=== PATIENT | female | born 1995 | race African-American/Black ===

== ENCOUNTER 2018-08-20 15:29 | Emergency (ER) | payer SELFPAY ==
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
[2018-08-20] MEDS ORDERED: IOPAMIDOL 76% 75 ML INFUS BTL 75 ML ONE (16:06)
[2018-08-20] MEDS ORDERED: NS(*) 0.9% 50 ML BAG 50 ML ONE (16:06)
[2018-08-20] MEDS ORDERED: KETOROLAC 30 MG/ML VIAL IVP ONE (17:15)
--- NOTE | 2018-08-20 17:24 | RADIOLOGY IMAGING REPORT ---
[place] [facility] [place] Vannesa Hinson : 1995 MR: [id number] V: [id number] EXAM DATE: ORDERING PHYSICIAN: ZAMZAM LO TECHNOLOGIST: Location: [facility] Patient: Vannesa Hinson : 1995 Visit/Account:[id number] Date of Sevice: 08/20/2018 EXAMINATION: Head CT without intravenous contrast HISTORY: Trauma. COMPARISON: None. TECHNIQUE: Contiguous axial images were obtained from the skull base to the vertex without intraven ous contrast. Sagittal and coronal reformatted images are also submitted. One of the following dose optimization techniques was utilized in the performance of this exam: Autom ated exposure control; adjustment of the mA and/or kV according to the patient's size; or use of an i terative reconstruction technique. Specific details can be referenced in the facility's radiology C T exam operational policy. FINDINGS: Brain and intracranial structures: Ventricles and sulci are normal in size. Cavum velum interpositu m. No midline shift, acute hemorrhage, acute infarct, or mass. Calvarium / scalp: Mild focal soft tissue swelling of the forehead on the left. No acute fracture o f the calvarium. Skull base / visualized face: Anterior nasal bone fracture which is age-indeterminate. Mild leftwar d deviation of the nasal septum. Visualized sinuses / orbits: Trace mucosal thickening in the paranasal sinuses. IMPRESSION: Mild focal soft tissue swelling at the forehead on the left. Age-indeterminate nasal bone fracture with slight angulation. No acute intracranial abnormality. Report Dictated By: Hubert Bojorquez MD at 08/20/2018 5:10 PM Report E-Signed By: Hubert Bojorquez MD at 08/20/2018 5:21 PM WSN:[email or web address]
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
[2018-08-20 18:10] VITALS: BP 110/88
== END 2018-08-20 18:15 | disposition home or self-care (01) ==
LOC: ER 15:43
DX: S02.2XXA Fracture of nasal bones, initial encounter for closed fracture (principal); S00.81XA Abrasion of other part of head, initial encounter; Y04.2XXA Assault by strike against or bumped into by another person, initial encounter
CPT/HCPCS: 70450; 70498; 84703; 96374; 99284; J1885; J7050; Q9967

== ENCOUNTER 2018-09-23 22:31 | Inpatient (IN) | payer OTHER ==
[~2018-09-23] VITALS: Ht 160 cm; Wt 50.8 kg
[2018-09-23] MEDS ORDERED: DIAZEPAM 10 MG TAB PO PRN ×2 (23:40)
[2018-09-24 00:45] VITALS: BP 106/83
[2018-09-24] MEDS ORDERED: MAG HYD/AL HYD/SIMETH 30ML UDC PO PRN (02:40)
[2018-09-24 05:08] VITALS: BP 120/81
[2018-09-24 08:00] VITALS: BP 120/78
[2018-09-24] MEDS: THIAMINE HCL 100 MG TAB PO SCH (08:25)
[2018-09-24] MEDS: FOLIC ACID 1 MG TAB PO SCH (08:25)
[2018-09-24] MEDS: MULTIVITAMINS TAB PO SCH (08:25)
[2018-09-24 12:00] VITALS: BP 122/88
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
[2018-09-24 16:10] VITALS: BP 122/86
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
[2018-09-25 06:02] VITALS: BP 130/103
[2018-09-25 08:18] VITALS: BP 132/91
[2018-09-25] MEDS: FOLIC ACID 1 MG TAB PO SCH (08:19)
[2018-09-25] MEDS: THIAMINE HCL 100 MG TAB PO SCH (08:19)
[2018-09-25] MEDS: MULTIVITAMINS TAB PO SCH (08:19)
[2018-09-25] MEDS ORDERED: NICOTINE INH SYSTEM 10 MG/INH INH PRN (12:20)
[2018-09-25] MEDS ORDERED: NICOTINE CARTRIDGE 1 EA PO PRN (12:20)
--- NOTE | 2018-09-25 12:34 | BHS Progress Note ---
[facility] - Subjective Progress Notes Subjective "We are supposed to be leaving for [place] on Thursday." Has been drinking 1 pint vodka daily x last two weeks Two weeks ago last methamphetamine, smoking last 4 years Denies depression or thoughts of hurting self Anxiety "Yes, I want to go home" Denies anger or mood swings, reports sleep as sufficient Denies withdrawal symptoms, denies NVD, tremor resolved Second psychiatric admission (first in [place] 2012), initially voluntary then was detained as had a near suicide attempt prior to ER presentation Previously prescribed Abilify and Seroquel, previous therapy at [facility] in [place] Suicidal Ideation: None Homicidal Ideation: None S - Objective Physical Exam Vital Signs Hematology Test 09/24/18 10:42 Chemistry Test 09/24/18 10:42 Medications (Trade) Dose Ordered Sig/Beth Route PRN Reason Start Time Stop Time Status Last Admin Dose Admin Folic Acid (Folic Acid (*) 1 Mg Tab) 1 mg QDAY PO 09/24/18 09:00 10/24/18 08:59 09/25/18 08:19 Multivitamins (Thera-M Enhanced Tab (Or Equiv)) 1 each QDAY PO 09/24/18 09:00 10/24/18 08:59 09/25/18 08:19 Thiamine HCl (Vitamin B-1(*) 100 Mg Tab (Or Equiv)) 100 mg QDAY PO 09/24/18 09:00 10/24/18 08:59 09/25/18 08:19 Muscle Strength and Tone: WNL Gait and Station: Steady [facility] Medications Reviewed: Side Effects, Benefits of Medication, Risks Allergies Reviewed: Yes Mental Status Exam General Appearance: Casual, Good Eye Contact (fair eye contact), Cooperative Speech: Clear, Spontaneous, Normal Rate, Normal Rhythm, Normal Volume, Normal Tone Mood: Dysthmic/Depressed (denies depression, slightly irritable); No Euthymic, No Hyperthymic Affect: No Full and Appropriate, No Calm, No Sad; Neutral; No Flat; Withdrawn; No Tearful, No Anxious; Agitated (Indicates to this interviewer that she is trying to sleep and does not want to speak to this interviewer.) Thought Process: Organized, Logical, Goal Directed; No Loose Associations, No Flight of Ideas Thought Content: No Suicidal Ideation (Denies at this time.), No Homicidal Ideation, No Delusions, No Auditory Halllucinations, No Visual Hallucinations, No Thought Broadcasting, No Ideas of Reference, No Obsessions Cognition: Alert & Oriented-Person, Alert & Oriented-Place, Alert & Oriented- Time Memory: Immediate, Recent, Remote Intelligence: Average Insight Judgment: Poor Microbiology Medications (Trade) Dose Ordered Sig/Beth Route PRN Reason Start Time Stop Time Status Last Admin Dose Admin Folic Acid (Folic Acid (*) 1 Mg Tab) 1 mg QDAY PO 09/24/18 09:00 10/24/18 08:59 09/25/18 08:19 Multivitamins (Thera-M Enhanced Tab (Or Equiv)) 1 each QDAY PO 09/24/18 09:00 10/24/18 08:59 09/25/18 08:19 Thiamine HCl (Vitamin B-1(*) 100 Mg Tab (Or Equiv)) 100 mg QDAY PO 09/24/18 09:00 10/24/18 08:59 09/25/18 08:19 [facility] Assessment and Plan [id number] Encounter Date: Sep 25, 2018 [id number] Encounter Time: 12:28 Problems: (1) Stimulant use disorder Status: Chronic (2) Alcohol use disorder Status: Chronic (3) Opioid use Status: Chronic Condition Discontinue CIWA Ongoing discharge planning, potential dc on Thursday Maintain precautions DANIELA ASHRAF NP Sep 25, 2018 12:34
[2018-09-26 06:11] VITALS: BP 127/98
[2018-09-26] MEDS: MULTIVITAMINS TAB PO SCH (08:47)
[2018-09-26] MEDS: FOLIC ACID 1 MG TAB PO SCH (08:47)
[2018-09-26] MEDS: THIAMINE HCL 100 MG TAB PO SCH (08:47)
--- NOTE | 2018-09-26 09:29 | BHS Progress Note ---
[facility] - Subjective Progress Notes Subjective "I'm doing well. I've learned that drinking is everything I've been drinking every day for a month." Denies urge to drink or use illicit substances Plans for traveling to [place] on Thursday, potential discharge Thursday Last use of heroin 3 months ago, last use of methamphetamine 3 weeks ago Living in [facility] presently with mother Suicidal Ideation: None Homicidal Ideation: None [facility] - Objective Physical Exam Vital Signs Laboratory Tests 09/24/18 10:42: Medications (Trade) Dose Ordered Sig/Beth Route PRN Reason Start Time Stop Time Status Last Admin Dose Admin Folic Acid (Folic Acid (*) 1 Mg Tab) 1 mg QDAY PO 09/24/18 09:00 10/24/18 08:59 09/26/18 08:47 Miscellaneous Information (Nicotrol Cartridge) 1 each PRN PRN PO NICOTINE REPLACEMENT 09/25/18 12:20 10/25/18 12:19 09/25/18 14:40 Multivitamins (Thera-M Enhanced Tab (Or Equiv)) 1 each QDAY PO 09/24/18 09:00 10/24/18 08:59 09/26/18 08:47 Nicotine (Nicotrol Inhaler 10 Mg/Inh (Or Equiv)) 10 mg PRN PRN INH NICOTINE REPLACEMENT 09/25/18 12:20 10/25/18 12:19 09/25/18 14:40 Thiamine HCl (Vitamin B-1(*) 100 Mg Tab (Or Equiv)) 100 mg QDAY PO 09/24/18 09:00 10/24/18 08:59 09/26/18 08:47 Laboratory Tests 09/24/18 10:42: Vital Signs Date Time Temp Pulse Resp B/P (MAP) Pulse Ox O2 Delivery O2 Flow Rate FiO2 09/26/18 06:11 97.6 75 127/98 (108) 95 Room Air 09/25/18 08:18 16 Allergies Coded Allergies No Known Drug Allergies ([id number]) Muscle Strength and Tone: WNL Gait and Station: Steady [facility] Medications Reviewed: Side Effects, Benefits of Medication, Risks Allergies Reviewed: Yes Mental Status Exam General Appearance: Casual, Good Eye Contact (fair eye contact), Cooperative Speech: Clear, Spontaneous, Normal Rate, Normal Rhythm, Normal Volume, Normal Tone Mood: No Dysthmic/Depressed; Euthymic; No Hyperthymic Affect: No Full and Appropriate, No Calm, No Sad; Neutral; No Flat; Withdrawn; No Tearful, No Anxious; Agitated (Indicates to this interviewer that she is trying to sleep and does not want to speak to this interviewer.) Thought Process: Organized, Logical, Goal Directed; No Loose Associations, No Flight of Ideas Thought Content: No Suicidal Ideation (Denies at this time.), No Homicidal Ideation, No Delusions, No Auditory Halllucinations, No Visual Hallucinations, No Thought Broadcasting, No Ideas of Reference, No Obsessions Cognition: Alert & Oriented-Person, Alert & Oriented-Place, Alert & Oriented- Time Memory: Immediate, Recent, Remote Intelligence: Average Insight Judgment: Poor Lab Vital Signs Date Time Temp Pulse Resp B/P (MAP) Pulse Ox O2 Delivery O2 Flow Rate FiO2 09/26/18 06:11 97.6 75 127/98 (108) 95 Room Air 09/25/18 08:18 16 [facility] Assessment and Plan [id number] Encounter Date: Sep 26, 2018 [id number] Encounter Time: 09:18 [facility] Plan: Admit to Unit, Necessary Precautions, Individual/Group Therapy, Educate Patient Multpiple Antipsychotics Used: No Problems: (1) Stimulant use disorder Status: Chronic (2) Alcohol use disorder Status: Chronic (3) Opioid use Status: Chronic Condition Discharge to home Encourage follow up with outpatient individual substance abuse therapy, resources provided prior to discharge Crisis line # provided, encourage use for worsening s/s, SI/H Return to ER for worsening s/s SI/HI DANIELA ASHRAF NP Sep 26, 2018 09:29
[2018-09-26] MEDS ORDERED: NIC10R INH (09:33)
[2018-09-26 10:14] VITALS: BP 117/83
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
== END 2018-09-26 11:40 | disposition home or self-care (01) | DRG 897 ==
LOC: BHS 22:31
PROVIDERS: ADMIT Psychiatry & Neurology Psychiatry; ATTEND Psychiatry & Neurology Psychiatry
DX: F10.20 Alcohol dependence, uncomplicated (principal); F15.20 Other stimulant dependence, uncomplicated; F12.20 Cannabis dependence, uncomplicated; F11.10 Opioid abuse, uncomplicated; Y90.8 Blood alcohol level of 240 mg/100 ml or more; F32.9 Major depressive disorder, single episode, unspecified; Z91.410 Personal history of adult physical and sexual abuse
CPT/HCPCS: 86580; J1200; J2060; J3490

== ENCOUNTER → 2018-09-23 | Emergency (ER) | payer OTHER ==
[~2018-09-23] MED LIST: LORazepam 2 MG/ML VIAL IM ONE; NIC10R INH; OLANZapine 10 MG VIAL IM ONLY ONE; WATER STERILE 10 ML VIAL IM ONLY ONE; diphenhydrAMINE 50 MG/ML VIAL IM ONE
[2018-09-23 20:42] VITALS: BP 144/98
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
[2018-09-23 21:06] LABS: PLATELET COUNT, AUTOMATED 326 K/uL (150-450)
== END ==
LOC: ER 20:50
DX: F10.220 Alcohol dependence with intoxication, uncomplicated (principal); F15.10 Other stimulant abuse, uncomplicated; Y90.8 Blood alcohol level of 240 mg/100 ml or more; R45.851 Suicidal ideations
CPT/HCPCS: 36415; 80305; 80320; 80329; 81001; 81025; 83735; 84443; 85025; 96372; 99285; A4216; 82040; 82247; 82310; 82374; 82435; 82565; 82947; 84075; 84132; 84155; 84295; 84450; 84460; 84520

== ENCOUNTER 2018-10-19 16:02 | Emergency (ER) | payer SELFPAY ==
[~2018-10-19 16:02] MED LIST changes: -LORazepam 2 MG/ML VIAL IM ONE; -OLANZapine 10 MG VIAL IM ONLY ONE; -WATER STERILE 10 ML VIAL IM ONLY ONE; -diphenhydrAMINE 50 MG/ML VIAL IM ONE
[2018-10-19] MEDS ORDERED: IBUPROFEN 600 MG TAB PO ONE (16:35)
--- NOTE | 2018-10-19 16:57 | ER Report ---
History and Physical Time Seen By MD: 16:25 Hx. of Stated Complaint: pt reports cough for 2 days and abscess R upper tooth for 1 week HPI/ROS CHIEF COMPLAINT: cough, shortness of breath, chills. HISTORY OF PRESENT ILLNESS: Pt has had 1 d of cough that began last night, accompanied by dyspnea and chills, though has not had elevated temperature. her daughter developed similar symptoms this am. Recent return flight from [facility] 2 wks ago. No subsequent symptoms, no leg swelling, no VTE history. Pt has not tried any meds for symptoms, denies n/v/ap/uti symptoms. LMP 1 wk ago. Nl; pt denies poss of . Pt also c/o painful r upper tooth with adjacent drainage. Has been ongoing x 1 wk, has not tried any medications, does not have dentist appointment planned. Pt reports she quit tobac 2 wks ago and has not subsequently smoked. REVIEW OF SYSTEMS: Constitutional: chills Eyes: No discharge. ENT: No sore throat. Dental pain as above Cardiovascular: No chest pain, no palpitations. Respiratory: above Gastrointestinal: No abdominal pain, no vomiting. Genitourinary: no dysuria Musculoskeletal: No back pain. Skin: No rashes. Neurological: No headache. Remainder of the 14 system rev: Yes Allergies: Coded Allergies: No Known Drug Allergies (Unverified , 10/19/18) Home Meds Discontinued Reported Medications Nicotine (NICOTROL) 10 Mg/Inh Ctr, 10 MG INH PRN PRN for NICOTINE REPLACEMENT 09/26/18 Reviewed Nurses Notes: Yes Hx Smoking: Yes Smoking Status: Current: Every Day Smoker, Heavy Tobacco Smoker Exposure to Second Hand Smoke?: No Hx Substance Use Disorder: Yes Hx Alcohol Use: Yes Constitutional Vital Sign - Last 24 Hours 10/19/18 10/19/18 16:07 17:36 Temp 98.5 Pulse 84 89 Resp 16 B/P (MAP) 151/96 128/91 (103) Pulse Ox 94 94 O2 Delivery Room Air Room Air Physical Exam General Appearance: The patient is alert, has no immediate need for airway protection and no signs of toxicity. Eyes: Pupils equal and round no pallor or injection. ENT, Mouth: Mucous membranes are moist. TTP adj to tooth #2> tooth intact without dental fracture or obvious dental milind. No soft tissue swelling, fluctuance. Respiratory: There are no retractions, lungs are clear to auscultation. Occ dry cough Cardiovascular: Regular rate and rhythm. Gastrointestinal: Abdomen is soft and non tender, no masses, bowel sounds normal. Neurological: alert, moves all ext Skin: Warm and dry, no rashes. Musculoskeletal: Extremities are nontender, nonswollen and have full range of motion. DIFFERENTIAL DIAGNOSIS: After history and physical exam differential diagnosis was considered for pneumonia, bronchitis, other emergent etiology, abscess Medical Decision Making Data Points Laboratory Hematology Test 10/19/18 00:00 Influenza Virus Type A (PCR) Negative (NEGATIVE) Influenza Virus Type B (PCR) Negative (NEGATIVE) Chemistry Test 10/19/18 00:00 Influenza Virus Type A (PCR) Negative (NEGATIVE) Influenza Virus Type B (PCR) Negative (NEGATIVE) ED Course/Re-evaluation ED Course 23 f presents with cough, sob; considered pe given recent flight, but symptoms c/w resp illness; daughter has similar. CXR clear, doubt pna at this time. Will tx supportively. Pt has dental pain without clear abscess, with intact dentiion. Understands need for close f/u with dentist. Decision to Disposition Date: Oct 19, 2018 Decision to Disposition Time: 17:56 Depart Departure Latest Vital Signs Vital Signs Date Time Temp Pulse Resp B/P (MAP) Pulse Ox O2 Delivery O2 Flow Rate FiO2 10/19/18 17:36 89 128/91 (103) 94 Room Air 10/19/18 16:07 98.5 16 Impression: Primary Impression: Respiratory infection Additional Impression: Pain, dental Condition: Improved Disposition: HOME OR SELF-CARE New Scripts No Active Prescriptions or Reported Meds Patient Instructions: Acute Bronchitis (ED) Additional Instructions: You may take ibuprofen 600mg every 8 hours for pain and chills; while you do not appear to have a bacterial infection at this point; please return if you are feeling worse or for any concerns. You may also take over the counter cough/cold medicines such as nyquil/dayquil, mucinex, as prescribed. Problem Qualifiers JAMES ONEAL MD Oct 19, 2018 16:57
--- NOTE | 2018-10-19 17:16 | RADIOLOGY IMAGING REPORT ---
FACILITY: [facility] [place] PATIENT NAME: Vannesa Hinson : 1995 MR: [id number] V: [id number] EXAM DATE: ORDERING PHYSICIAN: JAMES ONEAL TECHNOLOGIST: Location: [facility] [place] Patient: Vannesa Hinson : 1995 Visit/Account:[id number] Date of Sevice: 10/19/2018 Chest 2 views: HISTORY: Cough, dyspnea. COMPARISON: None. FINDINGS: Frontal and lateral chest: Cardiomediastinal silhouette is within normal limits. There is no infiltrate or pleural effusion. No pneumothorax. Pulmonary vasculature is normal. There is mild pulmonary hyperexpansion. Osseous structures are within normal limits. IMPRESSION: No evidence of acute cardiopulmonary abnormality. Report Dictated By: Caroline Zarate MD at 10/19/2018 5:10 PM Report E-Signed By: Caroline Zarate MD at 10/19/2018 5:11 PM WSN:[id number]
[2018-10-19 17:36] VITALS: BP 128/91
== END 2018-10-19 17:35 | disposition home or self-care (01) ==
LOC: ER 16:10
DX: J98.8 Other specified respiratory disorders (principal); K08.89 Other specified disorders of teeth and supporting structures
CPT/HCPCS: 71046; 87502; 99283

== ENCOUNTER 2018-11-06 05:03 | Emergency (ER) | payer SELFPAY ==
[2018-11-06 05:09] VITALS: BP 132/94
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
[2018-11-06] MEDS ORDERED: CEPH500C24 PO (06:00)
== END 2018-11-06 06:12 | disposition home or self-care (01) ==
LOC: ER 05:11
DX: S61.214A Laceration without foreign body of right ring finger without damage to nail, initial encounter (principal); S61.216A Laceration without foreign body of right little finger without damage to nail, initial encounter; S61.011A Laceration without foreign body of right thumb without damage to nail, initial encounter; W26.0XXA Contact with knife, initial encounter
CPT/HCPCS: 99283

== ENCOUNTER 2018-11-15 11:32 | Emergency (ER) | payer SELFPAY ==
--- NOTE | 2018-11-15 11:36 | ER Report ---
History and Physical Time Seen By MD: 11:36 HPI/ROS CHIEF COMPLAINT: Laceration, suture removal. Concerned about possible infection HISTORY OF PRESENT ILLNESS: The patient returns to the ED for suture removal.. Patient states that she has swelling and pain to her fourth finger. The laceration was on the right third and fourth fingers. Sutures have been in place for 10 days. Allergies: Coded Allergies: No Known Drug Allergies (Unverified , 11/15/18) Home Meds Discontinued Scripts Cephalexin Monohydrate (CEPHALEXIN) 500 Mg Cap, 500 MG PO Q6H, #20 CAP 0 Refills Prov:LOLA TOSCANO MD 11/06/18 Past Medical/Surgical History Patient has a past medical history of pituitary tumor, substance abuse, alcohol abuse, depression, anxiety. Patient has surgical history of tonsillectomy. Reviewed Nurses Notes: Yes Hx Smoking: Yes Smoking Status: Current: Every Day Smoker, Heavy Tobacco Smoker Exposure to Second Hand Smoke?: No Hx Substance Use Disorder: Yes Hx Alcohol Use: Yes Constitutional Vital Sign - Last 24 Hours 11/15/18 11:43 Temp 97.8 Pulse 85 Resp 14 B/P (MAP) 128/110 Pulse Ox 93 O2 Delivery Room Air Physical Exam General appearance: alert no distress Skin: The laceration of the right third and fourth fingers is well healing and appears to have pus pockets that developed at the distal suture of the fourth finger, is tender to touch. MEDICAL DECISION MAKING: I removed the sutures. Following removal there was mild dehiscence of the wound. Steri-Strips were placed. Medical Decision Making ED Course/Re-evaluation ED Course Patient admitted to exam room, history and physical were obtained. Differential diagnoses were considered. On examination patient did have some pus that had developed at the distal suture on the right fourth finger. Remainder the sutures appeared to be noninfective, well approximated. I did remove the sutures. There was some slight opening of the wound. I did place Steri-Strips. I did give her a dose of antibiotics here, Keflex 500 mg, Centrum home with a to go pack. I would like her to follow-up with her primary care provider in the next 4-5 days to ensure the infection has improved. I would also like her to sampler pickup her antibiotics. Patient verbalized understanding and agreement with plan. Decision to Disposition Date: Nov 15, 2018 Decision to Disposition Time: 11:52 Depart Departure Latest Vital Signs Vital Signs Date Time Temp Pulse Resp B/P (MAP) Pulse Ox O2 Delivery O2 Flow Rate FiO2 11/15/18 11:43 97.8 85 14 128/110 93 Room Air Impression: Primary Impression: Visit for suture removal Additional Impression: Infected wound Condition: Improved Disposition: HOME OR SELF-CARE Referrals: OUMAR GARCES MD Patient Instructions: Wound Infection (ED) Additional Instructions: Take the antibiotics that were prescribed a week ago. Follow up with your primary care provider in the next 4-5 days to make sure that the infection is getting better. Limit activity by pain. It may take several more weeks to get the sensation back into your fingers. If you are still unable to move your fingers in the next 5-7 days then call and follow up with [facility] for evaluation. Problem Qualifiers DEEP AMADOR Nov 15, 2018 11:36
[2018-11-15 11:43] VITALS: BP 128/110
[2018-11-15] MEDS ORDERED: CEPHALEXIN MONO 500 MG CAP PO ONE (11:50)
[2018-11-15] MEDS ORDERED: CEPHALEXIN 500 MG CAP TH 2 CAP/BOTTLE PO ONE (11:50)
== END 2018-11-15 12:01 | disposition home or self-care (01) ==
LOC: ER 11:53
DX: S61.212D Laceration without foreign body of right middle finger without damage to nail, subsequent encounter (principal); S61.214D Laceration without foreign body of right ring finger without damage to nail, subsequent encounter; L08.9 Local infection of the skin and subcutaneous tissue, unspecified
CPT/HCPCS: 99283

== ENCOUNTER → 2018-11-15 | Outpatient (CLI) | payer SELFPAY ==
[~2018-11-15] MED LIST changes: +CEPH500C24 PO
== END ==
LOC: AMB 11:10
PROVIDERS: ATTEND Nurse Practitioner
DX: S61.411A Laceration without foreign body of right hand, initial encounter (principal)
CPT/HCPCS: A0425; A0429

== ENCOUNTER 2019-03-08 15:04 | Emergency (ER) | payer MEDICAID ==
--- NOTE | 2019-03-08 15:13 | ER Report ---
History and Physical Time Seen By MD: 15:13 HPI/ROS CHIEF COMPLAINT: Abdominal pain HISTORY OF PRESENT ILLNESS: This is a 23-year-old female who presents to the emergency department for left lower quadrant pain. Patient states that she is approximately 8 weeks , and several hours prior to arrival developed some left lower quadrant discomfort. No nausea or vomiting. Loose stools no diarrhea. She also admits to smoking and drinking almost every day, a pint to a half pint of vodka. She also states that she was concerned and her friends were concerned about the pain, she had a "difficult with her daughter". She did have some mild spotting several days ago after intercourse however that has resolved. She has no other complaints, no fevers or chills. No chest pain or shortness of breath. No headaches. No rashes. REVIEW OF SYSTEMS: Constitutional: No fever, no chills. Eyes: No discharge. ENT: No sore throat. Cardiovascular: No chest pain, no palpitations. Respiratory: No cough, no shortness of breath. Gastrointestinal: As above. FLOOD CONTROL ENGINEER: As above. Genitourinary: No hematuria. Musculoskeletal: No back pain. Skin: No rashes. Neurological: No headache. Allergies: Coded Allergies: No Known Drug Allergies (Unverified , 11/15/18) Past Medical/Surgical History Patient has a past medical and surgical history of tonsillectomy, "pituitary tumor,", depression, chronic alcohol use and abuse, smokes, illicit drug use. Reviewed Nurses Notes: Yes Hx Smoking: Yes Smoking Status: Current: Every Day Smoker, Heavy Tobacco Smoker Exposure to Second Hand Smoke?: No Hx Substance Use Disorder: Yes Hx Alcohol Use: Yes Constitutional Vital Sign - Last 24 Hours 03/08/19 15:19 Temp 97.5 Pulse 88 Resp 18 B/P (MAP) 139/103 Pulse Ox 92 O2 Delivery Room Air Physical Exam General Appearance: The patient is alert, has no immediate need for airway protection and no signs of toxicity. Eyes: Pupils equal and round no pallor or injection. ENT, Mouth: Mucous membranes are moist. Respiratory: There are no retractions, lungs are clear to auscultation. Cardiovascular: Regular rate and rhythm. No murmurs, clicks or rubs. Gastrointestinal: Abdomen is soft and mild tenderness to the left lower quadrant, no masses, bowel sounds normal. Neurological: Alert and oriented 4. Moving all shoulders. Following all commands. No focal neuro deficits. Skin: Warm and dry, no rashes. Musculoskeletal: Neck is supple non tender. Extremities are nontender, nonswollen and have full range of motion. DIFFERENTIAL DIAGNOSIS: After history and physical exam differential diagnosis was considered for abdominal pain in a female including but not limited to ovarian cyst, pelvic inflammatory disease, gastroenteritis, ovarian torsion, urinary tract infection, and appendicitis. Medical Decision Making Data Points Result Diagram: 03/08/19 1548 03/08/19 1548 Laboratory Hematology Test 03/08/19 15:48 03/08/19 16:16 Red Blood Count 3.97 M/uL (4.17-5.56) Mean Corpuscular Volume 90.1 fL (80.0-96.0) Mean Corpuscular Hemoglobin 28.8 pg (26.0-33.0) Mean Corpuscular Hemoglobin Concent 31.9 g/dL (32.0-36.0) Red Cell Distribution Width 17.5 % (11.5-14.5) Mean Platelet Volume 7.4 fL (7.2-11.1) Neutrophils (%) (Auto) 54.8 % (39.4-72.5) Lymphocytes (%) (Auto) 34.6 % (17.6-49.6) Monocytes (%) (Auto) 7.8 % (4.1-12.4) Eosinophils (%) (Auto) 1.1 % (0.4-6.7) Basophils (%) (Auto) 1.7 % (0.3-1.4) Nucleated RBC Relative Count (auto) 0.1 /100WBC Neutrophils # (Auto) 2.1 K/uL (2.0-7.4) Lymphocytes # (Auto) 1.3 K/uL (1.3-3.6) Monocytes # (Auto) 0.3 K/uL (0.3-1.0) Eosinophils # (Auto) 0.0 K/uL (0.0-0.5) Basophils # (Auto) 0.1 K/uL (0.0-0.1) Nucleated RBC Absolute Count (auto) 0.00 K/uL Sodium Level 145 mmol/L (137-145) Potassium Level 3.6 mmol/L (3.5-5.0) Chloride Level 107 mmol/L (98-107) Carbon Dioxide Level 27 mmol/L (22-31) Blood Urea Nitrogen 10 mg/dl (7-18) Creatinine 0.70 mg/dl (0.52-1.04) Glomerular Filtration Rate Calc > 60.0 Random Glucose 81 mg/dl (75-110) Calcium Level 8.9 mg/dl (8.4-10.2) Total Bilirubin < 0.1 mg/dl (0.2-1.3) Aspartate Amino Transf (AST/SGOT) 138 U/L (0-35) Alanine Aminotransferase (ALT/SGPT) 49 U/L (0-56) Alkaline Phosphatase 61 U/L (0-126) Total Protein 7.3 g/dl (6.3-8.2) Albumin 4.3 g/dl (3.5-5.0) Human Chorionic Gonadotropin, Quant < 2 mIU/ml Urine Color Yellow Urine Clarity Slightly-cloudy Urine pH 7.0 pH (4.8-9.5) Urine Specific [place] 1.011 Urine Protein Negative mg/dL (NEGATIVE) Urine Glucose (UA) Negative mg/dL (NEGATIVE) Urine Ketones Negative mg/dL (NEGATIVE) Urine Blood Moderate (NEGATIVE) Urine Nitrite Negative (NEGATIVE) Urine Bilirubin Negative (NEGATIVE) Urine Urobilinogen Negative mg/dL (0.2-1.9) Urine Leukocyte Esterase Negative (NEGATIVE) Urine RBC <1 /HPF (0-2/HPF) Urine WBC 2 /HPF (0-5/HPF) Urine Squamous Epithelial Cells Many /LPF (</=FEW) Urine Bacteria Few /HPF (NONE-FEW) Urine Mucus None /HPF (NONE-FEW) Urine Yeast (Budding) Few /HPF Chemistry Test 03/08/19 15:48 03/08/19 16:16 White Blood Count 3.8 k/uL (4.5-11.0) Red Blood Count 3.97 M/uL (4.17-5.56) Hemoglobin 11.4 g/dL (12.0-16.0) Hematocrit 35.8 % (34.0-47.0) Mean Corpuscular Volume 90.1 fL (80.0-96.0) Mean Corpuscular Hemoglobin 28.8 pg (26.0-33.0) Mean Corpuscular Hemoglobin Concent 31.9 g/dL (32.0-36.0) Red Cell Distribution Width 17.5 % (11.5-14.5) Platelet Count 289 K/uL (150-450) Mean Platelet Volume 7.4 fL (7.2-11.1) Neutrophils (%) (Auto) 54.8 % (39.4-72.5) Lymphocytes (%) (Auto) 34.6 % (17.6-49.6) Monocytes (%) (Auto) 7.8 % (4.1-12.4) Eosinophils (%) (Auto) 1.1 % (0.4-6.7) Basophils (%) (Auto) 1.7 % (0.3-1.4) Nucleated RBC Relative Count (auto) 0.1 /100WBC Neutrophils # (Auto) 2.1 K/uL (2.0-7.4) Lymphocytes # (Auto) 1.3 K/uL (1.3-3.6) Monocytes # (Auto) 0.3 K/uL (0.3-1.0) Eosinophils # (Auto) 0.0 K/uL (0.0-0.5) Basophils # (Auto) 0.1 K/uL (0.0-0.1) Nucleated RBC Absolute Count (auto) 0.00 K/uL Glomerular Filtration Rate Calc > 60.0 Calcium Level 8.9 mg/dl (8.4-10.2) Total Bilirubin < 0.1 mg/dl (0.2-1.3) Aspartate Amino Transf (AST/SGOT) 138 U/L (0-35) Alanine Aminotransferase (ALT/SGPT) 49 U/L (0-56) Alkaline Phosphatase 61 U/L (0-126) Total Protein 7.3 g/dl (6.3-8.2) Albumin 4.3 g/dl (3.5-5.0) Human Chorionic Gonadotropin, Quant < 2 mIU/ml Urine Color Yellow Urine Clarity Slightly-cloudy Urine pH 7.0 pH (4.8-9.5) Urine Specific [place] 1.011 Urine Protein Negative mg/dL (NEGATIVE) Urine Glucose (UA) Negative mg/dL (NEGATIVE) Urine Ketones Negative mg/dL (NEGATIVE) Urine Blood Moderate (NEGATIVE) Urine Nitrite Negative (NEGATIVE) Urine Bilirubin Negative (NEGATIVE) Urine Urobilinogen Negative mg/dL (0.2-1.9) Urine Leukocyte Esterase Negative (NEGATIVE) Urine RBC <1 /HPF (0-2/HPF) Urine WBC 2 /HPF (0-5/HPF) Urine Squamous Epithelial Cells Many /LPF (</=FEW) Urine Bacteria Few /HPF (NONE-FEW) Urine Mucus None /HPF (NONE-FEW) Urine Yeast (Budding) Few /HPF Urinalysis Test 03/08/19 16:16 Urine Color Yellow Urine Clarity Slightly-cloudy Urine pH 7.0 pH (4.8-9.5) Urine Specific [place] 1.011 Urine Protein Negative mg/dL (NEGATIVE) Urine Glucose (UA) Negative mg/dL (NEGATIVE) Urine Ketones Negative mg/dL (NEGATIVE) Urine Blood Moderate (NEGATIVE) Urine Nitrite Negative (NEGATIVE) Urine Bilirubin Negative (NEGATIVE) Urine Urobilinogen Negative mg/dL (0.2-1.9) Urine Leukocyte Esterase Negative (NEGATIVE) Urine RBC <1 /HPF (0-2/HPF) Urine WBC 2 /HPF (0-5/HPF) Urine Squamous Epithelial Cells Many /LPF (</=FEW) Urine Bacteria Few /HPF (NONE-FEW) Urine Mucus None /HPF (NONE-FEW) Urine Yeast (Budding) Few /HPF EKG/Imaging Imaging PATIENT NAME: Vannesa Hinson : 1995 MR: [id number] V: [id number] EXAM DATE: [id number] ORDERING PHYSICIAN: ELISA BECERRA TECHNOLOGIST: Location: [facility] - [place] Patient: Vannesa Hinson : 1995 Visit/Account:[id number] Date of Sevice: 03/08/2019 EXAMINATION: Transvaginal OB Ultrasound < 14 weeks 03/08/2019 3:32 PM HISTORY: llq pain, approx 8 weeks preg. LMP uncertain COMPARISON STUDIES: none. FINDINGS: Uterus: Retroverted, 6.4 x 3.7 x 4.4 cm Myometrium: negative Endometrium: 5 mm thickness of the endometrial echocomplex. No identifiable intrauterine gestational sac or visible products of conception. Cervix: negative Ovaries: right ovary 4.4 x 2.8 x 2.8 cm, left ovary 3.4 x 2.3 x 2.0 cm, right ovary contains a hemorrhagic cyst or follicle measuring 2.6 x 2.3 x 1.9 cm. Blood flow is documented in each ovary by Doppler ultrasound. Adnexa: No adnexal findings of ectopic on either side. Free pelvic fluid: none IMPRESSION: 1. No identifiable intrauterine or ectopic gestation. Possibilities if the patient is truly would include to early to visualize, missed without residual products, or nonvisualized ectopic. 2. 2.6 cm hemorrhagic follicle within the right ovary. Report Dictated By: William Garrido MD at 03/08/2019 5:22 PM Report E-Signed By: William Garrido MD at 03/08/2019 5:26 PM [id number] ED Course/Re-evaluation ED Course The patient was admitted to a room. A history and physical obtained. Differential diagnoses were considered. An IV was started. A CBC, CMP, serum hCG were obtained. CBC showing white count 3.8. No identifiable intrauterine or extrauterine on transvaginal ultrasound, resolving right ovarian cyst otherwise unremarkable. I did go in to review the results with the patient, she was standing up in the room, very anxious to leave, I did tell her that her test was negative as well as negative ultrasound, patient started cussing and wanted to know why she was gaining weight, I did begin to explain that could be gastroenteritis that she is experiencing, she did have positive test at home could be that she had an early onset miscarriage, patient did not want to wait for her discharge instructions, I also wanted to discuss with her the low white blood cell count however she left rather abruptly as noted below cussing. A friend who is at the bedside said "this is bullshit man" and left as well. I did try to encourage her to follow up with primary or FLOOD CONTROL ENGINEER, she left before I was able. 03/08/2019 5:02:44 pm I did go in to review the results of the quantitative hCG as well as the results of the negative ultrasound, she became very agitated and upset and left rather abruptly, before she was given her discharge paperwork. She was also dressed when I entered the room and ready to go, standing up very anxious and agitated. Decision to Disposition Date: March 08, 2019 Decision to Disposition Time: 17:02 Depart Departure Latest Vital Signs Vital Signs Date Time Temp Pulse Resp B/P (MAP) Pulse Ox O2 Delivery O2 Flow Rate FiO2 03/08/19 15:19 97.5 88 18 139/103 92 Room Air Impression: Primary Impression: Lower abdominal pain Condition: Condition Unchanged Disposition: HOME OR SELF-CARE Referrals: OSMANY TAVAREZ DO Patient Instructions: Abdominal Pain (ED) ELISA BECERRA POCKETS AND PIECES NECKTIE OPERATOR-BC March 08, 2019 15:13
[2019-03-08 15:19] VITALS: BP 139/103
[2019-03-08 16:05] LABS: PLATELET COUNT, AUTOMATED 289 K/uL (150-450)
--- NOTE | 2019-03-08 17:31 | RADIOLOGY IMAGING REPORT ---
FACILITY: [facility] - [place], [place] PATIENT NAME: Vannesa Hinson : 1995 MR: [id number] V: [id number] EXAM DATE: ORDERING PHYSICIAN: ELISA BECERRA TECHNOLOGIST: Location: [facility] Patient: Vannesa Hinson : 1995 Visit/Account:[id number] Date of Sevice: 03/08/2019 EXAMINATION: Transvaginal OB Ultrasound < 14 weeks 03/08/2019 3:32 PM HISTORY: llq pain, approx 8 weeks preg. LMP uncertain COMPARISON STUDIES: none. FINDINGS: Uterus: Retroverted, 6.4 x 3.7 x 4.4 cm Myometrium: negative Endometrium: 5 mm thickness of the endometrial echocomplex. No identifiable intrauterine gestational sac or visible products of conception. Cervix: negative Ovaries: right ovary 4.4 x 2.8 x 2.8 cm, left ovary 3.4 x 2.3 x 2.0 cm, right ovary contains a hemorr hagic cyst or follicle measuring 2.6 x 2.3 x 1.9 cm. Blood flow is documented in each ovary by Doppler ultrasound. Adnexa: No adnexal findings of ectopic on either side. Free pelvic fluid: none IMPRESSION: 1. No identifiable intrauterine or ectopic gestation. Possibilities if the patient is truly would include to early to visualize, missed without residual products, or nonvisua lized ectopic. 2. 2.6 cm hemorrhagic follicle within the right ovary. Report Dictated By: William Garrido MD at 03/08/2019 5:22 PM Report E-Signed By: William Garrido MD at 03/08/2019 5:26 PM [id number]
== END 2019-03-08 17:00 | disposition left against medical advice (07) ==
LOC: ER 15:20
DX: R10.32 Left lower quadrant pain (principal); F17.210 Nicotine dependence, cigarettes, uncomplicated
CPT/HCPCS: 76817; 81001; 82040; 82247; 82310; 82374; 82435; 82565; 82947; 84075; 84132; 84155; 84295; 84450; 84460; 84520; 84702; 85025; 99284

== ENCOUNTER 2019-03-15 02:53 | Emergency (ER) | payer MEDICAID ==
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
[2019-03-15 03:54] VITALS: BP 139/100
== END 2019-03-15 03:56 | disposition home or self-care (01) ==
LOC: ER 03:49
DX: S30.1XXA Contusion of abdominal wall, initial encounter (principal); Y04.2XXA Assault by strike against or bumped into by another person, initial encounter
CPT/HCPCS: 99284

== ENCOUNTER → 2019-03-15 | Outpatient (CLI) | payer MEDICAID | LOC: AMB 02:42 | PROVIDERS: ATTEND Nurse Practitioner | DX: R10.32 Left lower quadrant pain (principal); Y04.8XXA Assault by other bodily force, initial encounter | CPT/HCPCS: A0425; A0429 ==